=== PATIENT | female | born 1960 | race Caucasian/White ===

== ENCOUNTER → 2017-01-19 | Outpatient (CLI) | payer BC ==
--- NOTE | 2017-01-20 07:38 | WWHP ---
DATE OF SERVICE: 01/19/2017 CHIEF COMPLAINT: The patient is here for her routine gynecologic exam and mammogram. HPI: This is a 56-year-old G3, P3 with an LMP of 2009. The patient is status post endometrial ablation in 2009 and has been amenorrheic since then. She did go through a period of hot flashes, which have improved. She is without gynecologic complaints. PAST MEDICAL HISTORY: Basal cell skin cancer 2016. MEDICATIONS: None. Allergies to CT SCAN DYE, which caused difficulty breathing. PAST SURGICAL HISTORY: section x3, tonsillectomy in the past, colonoscopy 2014. Removal of basal cell skin cancer 2016. 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 SOCIAL HISTORY: She denies tobacco and drug use and has 0 to 3 alcoholic drinks per month. 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 She would like to retire in 2018. Family history is unchanged from the 2015 H&P. REVIEW OF SYSTEMS: Weight has been stable. She denies respiratory, cardiac, or GI problems. PHYSICAL EXAM: Blood pressure 116/80. Height 5 feet 4-1/2 inches. Weight 212 pounds. Temperature 97.9, pulse 79. This a well-developed, heavyset white female who is alert and oriented x3 in no acute distress. HEENT is within normal limits. NECK: Supple without mass or thyromegaly. CHEST AND LUNGS: Clear to auscultation. HEART: Regular rate and rhythm. Breasts are without mass or discharge. Axillary exam is negative for adenopathy. BACK: Negative for CVA tenderness. ABDOMEN: Mildly obese, soft, nontender, without palpable masses. PELVIC EXAM: Normal external genitalia with minimal atrophy. Cervix and vagina appear within normal limits with mild atrophy. There is no evidence of prolapse. The uterus is midposition, nongravid size and nontender and there are no palpable adnexal masses or tenderness. Rectovaginal exam is negative mass or tenderness and is negative for occult blood. EXTREMITIES: Nontender. IMPRESSION: A 56-year-old menopausal female with normal gynecologic exam. PLAN: 1. Pap smear was performed. 2. Self breast examination was discussed. 3. Mammogram will be done today. 4. She will return in one year. FRANK
--- NOTE | 2017-01-20 07:56 | MM ---
Reason for exam: screening (asymptomatic). Last mammogram was performed 2 years ago. History: Patient is postmenopausal. Took hormonal contraceptives for 1 year. Physical Findings: A clinical breast exam by your physician is recommended on an annual basis and results should be correlated with mammographic findings. MG Screening Mammo w CAD Bilateral CC and MLO view(s) were taken. Prior study comparison: January 25, 2015, right breast MG work up mamm w CAD RT. January 08, 2015, bilateral MG screening mammo w CAD. The breast tissue is heterogeneously dense. This may lower the sensitivity of mammography. There is no discrete abnormality. ASSESSMENT: Negative, BI-RAD 1 RECOMMENDATION: Routine screening mammogram of both breasts in 1 year.
== END | disposition home or self-care (01) ==
LOC: WWCWWP 15:58
PROVIDERS: ATTEND Obstetrics & Gynecology
DX: Z12.31 Encounter for screening mammogram for malignant neoplasm of breast (principal)

== ENCOUNTER → 2018-02-18 | Outpatient (CLI) | payer BC ==
[2018-02-18 20:41] LABS: ALT 29 U/L (9-52); AST 20 U/L (14-36); Albumin 4.3 g/dL (3.5-5.0); Alkaline Phosphatase 74 U/L (38-126); Anion Gap 13 mmol/L; Blood Urea Nitrogen 14 mg/dL (7-17); Calcium 9.5 mg/dL (8.4-10.2); Carbon Dioxide 24 mmol/L (22-30); Chloride 107 mmol/L (98-107); Cholesterol 203 mg/dL (<200); Glucose 103 mg/dL (74-99); HDL Cholesterol 39 mg/dL (40-60); LDL Cholesterol,Calculated 136 mg/dL (0-99); Potassium 4.5 mmol/L (3.5-5.1); Sodium 144 mmol/L (137-145); Total Bilirubin 0.5 mg/dL (0.2-1.3); Total Protein 7.3 g/dL (6.3-8.2); Triglycerides 139 mg/dL (<150)
== END | disposition home or self-care (01) ==
LOC: MMGSC 11:24
PROVIDERS: ATTEND Family Medicine
DX: E78.5 Hyperlipidemia, unspecified (principal)
CPT/HCPCS: 36415; 80053; 80061

== ENCOUNTER 2018-04-05 17:49 | Emergency (ER) | payer BC ==
[2018-04-05] MEDS ORDERED: KETOROLAC 30 MG/ML 1 ML VIAL IVP STA (18:29)
--- NOTE | 2018-04-05 18:37 | ED ---
Back Pain HPI - General Chief Complaint: Back Pain/Injury Stated Complaint: SOB/Back Pain Time Seen by Provider: 04/05/18 18:10 Source: patient Limitations: no limitations - History of Present Illness Initial Comments: Patient is a 57-year-old female presents with a chief complaint of back pain. The patient states that this started last night. She describes an episodic sharp and grabbing pain. She cannot identify any inciting incidences. No aggravating or alleviating factors. Timing is intermittent. Patient states that she does not take any medications, she recently had a physical examination with blood work and everything was normal. Patient is otherwise healthy. - Related Data Home Medications Medication Instructions Recorded Confirmed Acetaminophen Tab [Tylenol Tab] 650 mg PO ONCE PRN 04/05/18 04/05/18 Naproxen Sodium [Aleve] 440 mg PO ONCE PRN 04/05/18 04/05/18 Kye-Azmc-Mprrw Acid 1 cap PO DAILY 04/05/18 04/05/18 [-U Capsule (formulary)] Probiotic Gummies 1 tab PO DAILY 04/05/18 04/05/18 Previous Rx's Medication Instructions Recorded Ibuprofen [Motrin] 800 mg PO TID #20 tab 04/05/18 Methocarbamol [Robaxin-750] 750 mg PO TID PRN #6 tablet 04/05/18 Allergies Allergy/AdvReac Type Severity Reaction Status Date / Time Iodinated Contrast- Oral and Allergy Anaphylaxis Verified 04/05/18 19:06 IV Dye Review of Systems ROS Statement: Those systems with pertinent positive or pertinent negative responses have been documented in the HPI. ROS Other: All systems not noted in ROS Statement are negative. Musculoskeletal: Reports: back pain Past Medical History Past Medical History: No Reported History History of Any Multi-Drug Resistant Organisms: None Reported Past Surgical History: Adenoidectomy, Section, Tonsillectomy Past Psychological History: No Psychological Hx Reported Smoking Status: Never smoker Past Alcohol Use History: None Reported Past Drug Use History: None Reported General Exam Limitations: no limitations General appearance: alert, in no apparent distress Head exam: Present: atraumatic, normocephalic Eye exam: Present: normal appearance ENT exam: Present: normal exam, mucous membranes moist Neck exam: Present: normal inspection, full ROM. Absent: tenderness, lymphadenopathy Respiratory exam: Present: normal lung sounds bilaterally. Absent: respiratory distress, wheezes Cardiovascular Exam: Present: regular rate, normal rhythm GI/Abdominal exam: Present: soft, tenderness (Mild epigastric tenderness.). Absent: distended Rectal exam: Present: deferred Extremities exam: Present: normal inspection, normal capillary refill. Absent: calf tenderness Back exam: Present: normal inspection. Absent: tenderness, CVA tenderness (R), CVA tenderness (L), paraspinal tenderness Neurological exam: Present: alert, oriented X3 Psychiatric exam: Present: normal affect, normal mood Skin exam: Present: warm, dry, intact Course Vital Signs 04/05/18 04/05/18 04/05/18 17:59 18:54 19:15 Temperature 97.8 F Pulse Rate 68 73 68 Respiratory 18 20 19 Rate Blood Pressure 125/73 135/76 O2 Sat by Pulse 97 99 95 Oximetry Medical Decision Making - Medical Decision Making Patient presents with a chief complaint of back pain. On initial evaluation, vital signs are stable, patient is no acute distress. EKG performed at 1807 shows normal sinus rhythm with a rate of 64 bpm. EKG is otherwise unremarkable. Patient will be evaluated with basic and cardiac labs. At this time, patient does not complain of any pleuritic nature to her back pain. Oxygen saturation is 97% on room air, vitals are otherwise normal. At this time , PE is thought to be unlikely. 8:28 PM Lab evaluation thus far is unremarkable. Initial cardiac enzymes are negative. Chest x-ray is within normal limits. Patient states that her pain is improved after a dose of Toradol. Patient now further states that holding herself up or standing upright exacerbates her pain. This finding is more consistent with musculoskeletal etiology is of back pain. Patient remains stable on reevaluation. 9:34 PM Repeat troponin is negative. At this time, patient stable for discharge. She was prescribed Motrin and Robaxin for back pain. She was instructed to follow up with primary care in 1-2 days, return to the emergency department if symptoms worsen or change. - Lab Data Result diagrams: 04/05/18 18:45 04/05/18 18:45 Lab Results 04/05/18 04/05/18 04/05/18 Range/Units 18:45 18:45 18:45 WBC 9.4 (3.8-10.6) k/uL RBC 4.48 (3.80-5.40) m/uL Hgb 12.9 (11.4-16.0) gm/dL Hct 38.8 (34.0-46.0) % MCV 86.5 (80.0-100.0) fL MCH 28.7 (25.0-35.0) pg MCHC 33.2 (31.0-37.0) g/dL RDW 13.9 (11.5-15.5) % Plt Count 296 (150-450) k/uL Neutrophils % (Manual) 52 % Lymphocytes % (Manual) 41 % Monocytes % (Manual) 6 % Eosinophils % (Manual) 1 % Neutrophils # (Manual) 4.89 (1.3-7.7) k/uL Lymphocytes # (Manual) 3.85 (1.0-4.8) k/uL Monocytes # (Manual) 0.56 (0-1.0) k/uL Eosinophils # (Manual) 0.09 (0-0.7) k/uL Nucleated RBCs 0 (0-0) /100 WBC Manual Slide Review Performed Toxic Vacuolation Present Large Platelets Present Polychromasia Present Sodium 143 (137-145) mmol/L Potassium 4.4 (3.5-5.1) mmol/L Chloride 103 (98-107) mmol/L Carbon Dioxide 25 (22-30) mmol/L Anion Gap 15 mmol/L BUN 11 (7-17) mg/dL Creatinine 0.64 (0.52-1.04) mg/dL Est GFR (CKD-EPI)AfAm >90 (>60 ml/min/1.73 sqM) Est GFR (CKD-EPI)NonAf >90 (>60 ml/min/1.73 sqM) Glucose 91 (74-99) mg/dL Calcium 9.7 (8.4-10.2) mg/dL Total Bilirubin 0.5 (0.2-1.3) mg/dL AST 21 (14-36) U/L ALT 28 (9-52) U/L Alkaline Phosphatase 75 (38-126) U/L Troponin I (0.000-0.034) ng/mL NT-Pro-B Natriuret Pep 91 pg/mL Total Protein 7.2 (6.3-8.2) g/dL Albumin 4.4 (3.5-5.0) g/dL Lipase 56 (23-300) U/L Urine Color Urine Appearance (Clear) Urine pH (5.0-8.0) Ur Specific [place] (1.001-1.035) Urine Protein (Negative) Urine Glucose (UA) (Negative) Urine Ketones (Negative) Urine Blood (Negative) Urine Nitrite (Negative) Urine Bilirubin (Negative) Urine Urobilinogen (<2.0) mg/dL Ur Leukocyte Esterase (Negative) 04/05/18 04/05/18 04/05/18 Range/Units 18:45 19:33 20:35 WBC (3.8-10.6) k/uL RBC (3.80-5.40) m/uL Hgb (11.4-16.0) gm/dL Hct (34.0-46.0) % MCV (80.0-100.0) fL MCH (25.0-35.0) pg MCHC (31.0-37.0) g/dL RDW (11.5-15.5) % Plt Count (150-450) k/uL Neutrophils % (Manual) % Lymphocytes % (Manual) % Monocytes % (Manual) % Eosinophils % (Manual) % Neutrophils # (Manual) (1.3-7.7) k/uL Lymphocytes # (Manual) (1.0-4.8) k/uL Monocytes # (Manual) (0-1.0) k/uL Eosinophils # (Manual) (0-0.7) k/uL Nucleated RBCs (0-0) /100 WBC Manual Slide Review Toxic Vacuolation Large Platelets Polychromasia Sodium (137-145) mmol/L Potassium (3.5-5.1) mmol/L Chloride (98-107) mmol/L Carbon Dioxide (22-30) mmol/L Anion Gap mmol/L BUN (7-17) mg/dL Creatinine (0.52-1.04) mg/dL Est GFR (CKD-EPI)AfAm (>60 ml/min/1.73 sqM) Est GFR (CKD-EPI)NonAf (>60 ml/min/1.73 sqM) Glucose (74-99) mg/dL Calcium (8.4-10.2) mg/dL Total Bilirubin (0.2-1.3) mg/dL AST (14-36) U/L ALT (9-52) U/L Alkaline Phosphatase (38-126) U/L Troponin I <0.012 <0.012 (0.000-0.034) ng/mL NT-Pro-B Natriuret Pep pg/mL Total Protein (6.3-8.2) g/dL Albumin (3.5-5.0) g/dL Lipase (23-300) U/L Urine Color Light Yellow Urine Appearance Clear (Clear) Urine pH 5.5 (5.0-8.0) Ur Specific [place] 1.006 (1.001-1.035) Urine Protein Negative (Negative) Urine Glucose (UA) Negative (Negative) Urine Ketones Negative (Negative) Urine Blood Negative (Negative) Urine Nitrite Negative (Negative) Urine Bilirubin Negative (Negative) Urine Urobilinogen <2.0 (<2.0) mg/dL Ur Leukocyte Esterase Negative (Negative) Disposition Clinical Impression: Mid back pain, Mechanical back pain Disposition: HOME SELF-CARE Condition: Good Instructions: Back Pain (ED) Prescriptions: Ibuprofen [Motrin] 800 mg PO TID #20 tab Methocarbamol [Robaxin-750] 750 mg PO TID PRN #6 tablet PRN Reason: muscle spasm Is patient prescribed a controlled substance at d/c from ED?: No Referrals: Angela Fitch MD [Primary Care Provider] - 1-2 days
--- NOTE | 2018-04-05 19:03 | XR ---
EXAMINATION TYPE: XR chest 2V DATE OF EXAM: 04/05/2018 COMPARISON: NONE HISTORY: Short of breath TECHNIQUE: Frontal and lateral views of the chest are obtained. FINDINGS: Heart and mediastinum are normal. Lungs are clear. Diaphragm is normal. There are chest le ads. Bony thorax is intact. There is spurring in the thoracic spine. IMPRESSION: No active cardiopulmonary disease. Normal heart.
[2018-04-05 19:10] LABS: ALT 28 U/L (9-52); AST 21 U/L (14-36); Albumin 4.4 g/dL (3.5-5.0); Alkaline Phosphatase 75 U/L (38-126); Anion Gap 15 mmol/L; Blood Urea Nitrogen 11 mg/dL (7-17); Calcium 9.7 mg/dL (8.4-10.2); Carbon Dioxide 25 mmol/L (22-30); Chloride 103 mmol/L (98-107); Glucose 91 mg/dL (74-99); Lipase 56 U/L (23-300); Potassium 4.4 mmol/L (3.5-5.1); Sodium 143 mmol/L (137-145); Total Bilirubin 0.5 mg/dL (0.2-1.3); Total Protein 7.2 g/dL (6.3-8.2)
[2018-04-05 19:16] LABS: HCT 38.8 % (34.0-46.0); HGB 12.9 gm/dL (11.4-16.0); MCH 28.7 pg (25.0-35.0); MCHC 33.2 g/dL (31.0-37.0); MCV 86.5 fL (80.0-100.0); Mean Platelet Volume 7.8; Platelet Count 296 k/uL (150-450); RBC 4.48 m/uL (3.80-5.40); RDW 13.9 % (11.5-15.5); WBC 9.4 k/uL (3.8-10.6)
[2018-04-05 19:31] LABS: Eosinophils # (M) 0.09 k/uL (0-0.7); Lymphocytes # (M) 3.85 k/uL (1.0-4.8); Monocytes # (M) 0.56 k/uL (0-1.0); Neutrophils # (M) 4.89 k/uL (1.3-7.7); Neutrophils % (M) 52 %; Nucleated Red Blood Cells 0 /100 WBC (0-0); Total Cells Counted 100
[2018-04-05 19:32] LABS: Large Platelets Present; Toxic Vacuolation Present
[2018-04-05 19:33] LABS: Polychromasia Present
[2018-04-05 19:45] LABS: Appearance,Urine Clear (Clear); Bilirubin,Urine Negative (Negative); Blood,Urine Negative (Negative); Color,Urine Light Yellow; Glucose,Urine (UA) Negative (Negative); Ketones,Urine Negative (Negative); Leukocyte Esterase,Urine Negative (Negative); Nitrite,Urine Negative (Negative); PH, Urine 5.5 (5.0-8.0); Protein,Urine Negative (Negative); Specific Gravity,Urine 1.006 (1.001-1.035); Urobilinogen,Urine <2.0 mg/dL (<2.0)
[2018-04-05 21:46] VITALS: BP 132/84; PULSE 63; RESP 16; TEMP 98.3
== END 2018-04-05 21:48 | disposition home or self-care (01) ==
LOC: EC 17:49
DX: M54.9 Dorsalgia, unspecified (principal); Z79.899 Other long term (current) drug therapy; Z91.041 Radiographic dye allergy status
CPT/HCPCS: 36415; 93005; 83880; 80053; 83690; 84484; 85025; 81003; 71046; 99284; 96374; J1885

== ENCOUNTER → 2018-06-28 | Outpatient (CLI) | payer BC ==
[2018-06-28 14:16] VITALS: BP 118/78; PULSE 71; TEMP 97.4; BMI 34.4
--- NOTE | 2018-06-28 14:47 | P.HPOB ---
History of Present Illness H&P Date: 06/28/18 Chief Complaint: The patient is here for her routine gynecologic exam and mammogram. This is a 57-year-old G3 PIII with an LMP of 2009. The patient is status post endometrial ablation in 2009 and has been a mandrake since then. She did have a period with hot flashes which have resolved. She is without gynecologic complaints and denies any postmenopausal bleeding. Review of Systems She has lost 5 pounds over the last year. She denies respiratory, cardiac, or G.I. problems. 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 She did have a previous endometrial ablation. History of Any Multi-Drug Resistant Organisms: None Reported Past Surgical History: Adenoidectomy, Section (3), Tonsillectomy Additional Past Surgical History / Comment(s): Removal of basal cell skin cancer 2015. Colonoscopy 2014. 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 - Past Family History Father Family Medical History: Diabetes Mellitus Additional Family Medical History / Comment(s): Grandfather had lymphoma. Medications and Allergies Home Medications Medication Instructions Recorded Confirmed Type Acetaminophen Tab [Tylenol Tab] 650 mg PO ONCE PRN 04/05/18 06/28/18 History Naproxen Sodium [Aleve] 440 mg PO ONCE PRN 04/05/18 06/28/18 History Probiotic Gummies 1 tab PO DAILY 04/05/18 04/05/18 History Allergies Allergy/AdvReac Type Severity Reaction Status Date / Time Iodinated Contrast- Oral and Allergy Anaphylaxis Verified 04/05/18 19:06 IV Dye Exam Vital Signs Temp Pulse BP 06/28/18 14:13 97.4 F L 71 118/78 Intake and Output 06/27/18 06/28/18 06/28/18 22:59 06:59 14:59 Other: Weight 93.894 kg Height 5'5", BMI 34.4. This is a well-developed well-nourished heavyset white female who is alert and oriented times 3 in no acute distress. HEENT: Within normal limits. NECK: Supple without mass or thyromegaly. CHEST AND LUNGS: Clear to auscultation. HEART: Regular rate and rhythm. BREASTS: Are without mass or discharge. AXILLARY EXAM: Negative for adenopathy. BACK: Negative for CVA tenderness. ABDOMEN: Soft, mildly obese, nontender, without palpable masses. PELVIC EXAM: Normal external genitalia with minimal atrophy. Cervix and vagina appear normal with minimal atrophy. There is no unusual discharge. There is no evidence of prolapse. The uterus is midposition, nongravid size and nontender. There are no palpable adnexal masses or tenderness. RECTAL EXAM: rectovaginal exam is negative for mass or tenderness and is negative for occult blood. EXTREMITIES: Nontender. IMPRESSION: 1. 57-year-old menopausal female with normal gynecologic exam. PLAN: 1. Pap smear was deferred since she had a normal one last year. 2. Self breast awareness was discussed. 3. Screening mammogram will be done today 4. Osteoporosis prevention was discussed. 5. Return in one year.
--- NOTE | 2018-06-29 12:22 | MM ---
Reason for exam: screening (asymptomatic). Last mammogram was performed 1 year and 5 months ago. History: Patient is postmenopausal. Took hormonal contraceptives for 1 year. Physical Findings: A clinical breast exam by your physician is recommended on an annual basis and results should be correlated with mammographic findings. MG Screening Mammo w CAD Bilateral CC and MLO view(s) were taken. Prior study comparison: January 19, 2017, bilateral MG screening mammo w CAD. January 25, 2015, right breast MG work up mamm w CAD RT. The breast tissue is heterogeneously dense. This may lower the sensitivity of mammography. No suspicious abnormality. No significant changes when compared with prior studies. ASSESSMENT: Negative, BI-RAD 1 RECOMMENDATION: Routine screening mammogram of both breasts in 1 year.
== END | disposition home or self-care (01) ==
LOC: WWCWWP 13:55
PROVIDERS: ATTEND Obstetrics & Gynecology
DX: Z12.31 Encounter for screening mammogram for malignant neoplasm of breast (principal)
CPT/HCPCS: 77067

== ENCOUNTER → 2018-09-08 | Outpatient (CLI) | payer OTHER ==
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
== END ==
LOC: RADXRMAIN 11:54
PROVIDERS: ATTEND Emergency Medicine
DX: S13.4XXA Sprain of ligaments of cervical spine, initial encounter (principal); S23.3XXA Sprain of ligaments of thoracic spine, initial encounter; S60.222A Contusion of left hand, initial encounter; M19.042 Primary osteoarthritis, left hand
CPT/HCPCS: 72050; 72072

== ENCOUNTER → 2019-03-17 | Outpatient (CLI) | payer BC ==
[2019-03-17 11:17] LABS: HCT 42.6 % (34.0-46.0); HGB 13.8 gm/dL (11.4-16.0); MCH 28.8 pg (25.0-35.0); MCHC 32.4 g/dL (31.0-37.0); Mean Platelet Volume 7.8; Platelet Count 341 k/uL (150-450); RBC 4.79 m/uL (3.80-5.40); RDW 14.3 % (11.5-15.5); WBC 8.6 k/uL (3.8-10.6)
[2019-03-17 16:56] LABS: Albumin 4.7 g/dL (3.80-4.90); Albumin/Globulin Ratio 2.24 (1.60-3.17); Anion Gap 8.2 mmol/L (4.00-12.00); Calcium 9.7 mg/dL (8.7-10.3); Carbon Dioxide 26.8 mmol/L (21.6-31.8); Globulin 2.1 g/dL (1.6-3.3); LDL Cholesterol,Calculated 121.2 mg/dL (0.0-131.0); Potassium 4.7 mmol/L (3.5-5.5); Total Bilirubin 0.6 mg/dL (0.3-1.2); Total Protein 6.8 g/dL (6.2-8.2); VLDL Calculation 34.8 mg/dL (5.00-40.00)
[2019-03-17 17:13] LABS: T4, Free (Free Thyroxine) 0.9 ng/dL (0.80-1.80)
== END | disposition home or self-care (01) ==
LOC: LABWHC1 09:31
PROVIDERS: ATTEND Family Medicine
DX: Z00.00 Encounter for general adult medical examination without abnormal findings (principal); R53.83 Other fatigue
CPT/HCPCS: 36415; 80053; 80061; 84439; 84443; 85027

== ENCOUNTER → 2019-04-13 | Outpatient (CLI) | payer BC ==
--- NOTE | 2019-04-14 08:03 | BD ---
EXAMINATION TYPE: Axial Bone Density DATE OF EXAM: 04/13/2019 COMPARISON: NONE CLINICAL HISTORY: Postmenopausal without hormonal replacement therapy Height: 5 FT 4 1/2 IN Weight: 203 FRAX RISK QUESTIONS: RISK FACTORS HISTORY OF: Active: MODERATE Postmenopausal woman: ABLATION AGE 42 MEDICATIONS: Additional Medications: NONE Additional History: EXAM MEASUREMENTS: Bone mineral densitometry was performed using the [employer] System. Bone mineral density as measured about the Lumbar spine is: ----- L1-L4(G/cm2): 1.444 T Score Values are as follows: ----- L2: 1.6 ----- L3: 3.0 ----- L4: 2.5 ----- L1-L4: 2.2 BASELINE Bone mineral density about the R hip (g/cm2): 1.219 Bone mineral density about the L hip (g/cm2): 1.254 T Score values are as follows: -----R Neck: 1.3 -----L Neck: 1.6 -----R Total: 2.3 -----L Total: 2.9 BASELINE IMPRESSION: Normal (Values between +1 and -1 indicate normal bone mass). Consider repeating this study in 5 year s or sooner if there is some new clinical indication. NOTE: T-SCORE=SD OF THE YOUNG ADULT MEAN.
== END | disposition home or self-care (01) ==
LOC: RADBDWWP 16:14
PROVIDERS: ATTEND Family Medicine
DX: Z78.0 Asymptomatic menopausal state (principal)
CPT/HCPCS: 77080

== ENCOUNTER → 2019-10-17 | Outpatient (CLI) | payer BC ==
[2019-10-17 14:17] VITALS: BP 127/84; PULSE 66; RESP 18; TEMP 98.6; BMI 34.6
--- NOTE | 2019-10-17 14:51 | P.HPOB ---
History of Present Illness H&P Date: 10/17/19 Chief Complaint: The patient is here for her routine gynecologic exam and ma mmogram. This is a 59-year-old with an LMP of 2009. The patient is without gynecologic complaints and denies any postmenopausal bleeding. Review of Systems The patient's weight has been stable over the last year. She denies respiratory, cardiac, or G.I. problems. Past Medical History Past Medical History: Cancer Additional Past Medical History / Comment(s): Basal cell skin cancers 2015. 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 She did have a previous endometrial ablation. History of Any Multi-Drug Resistant Organisms: None Reported Past Surgical History: Adenoidectomy, Section, Tonsillectomy Additional Past Surgical History / Comment(s): Removal of basal cell skin cancer 2015. 3. Colonoscopy 2014(next after 10yrs). 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 - Past Family History Father Family Medical History: Diabetes Mellitus Additional Family Medical History / Comment(s): Grandfather had lymphoma. Medications and Allergies Home Medications Medication Instructions Recorded Confirmed Type Acetaminophen Tab [Tylenol Tab] 650 mg PO ONCE PRN 04/05/18 10/17/19 History Naproxen Sodium [Aleve] 440 mg PO ONCE PRN 04/05/18 10/17/19 History Probiotic Gummies 1 tab PO DAILY 04/05/18 10/17/19 History Allergies Allergy/AdvReac Type Severity Reaction Status Date / Time Iodinated Contrast Media Allergy Anaphylaxis Verified 10/17/19 14:17 [Iodinated Contrast- Oral and IV Dye] Exam Vital Signs Temp Pulse Resp BP Pulse Ox 10/17/19 14:10 98.6 F 66 18 127/84 96 Intake and Output 10/16/19 10/17/19 10/17/19 22:59 06:59 14:59 Other: Weight 94.347 kg Height 5 feet 5 inches, weight 208 pounds, BMI 34.6. This is a well-developed well-nourished white female who is alert and oriented times 3 in no acute distress. HEENT: Within normal limits. NECK: Supple without mass or thyromegaly. CHEST AND LUNGS: Clear to auscultation. HEART: Regular rate and rhythm. BREASTS: Are without mass or discharge. AXILLARY EXAM: Negative for adenopathy. BACK: Negative for CVA tenderness. ABDOMEN: Soft, nontender, without palpable masses. PELVIC EXAM: Normal external genitalia with mild atrophy. Cervix and vagina appear normal with mild atrophy. The cervix appears nulliparous. There is no unusual discharge. There is no evidence of prolapse. The uterus is midposition, nongravid size and nontender. There are no palpable adnexal masses or tenderness. RECTAL EXAM: Rectovaginal exam is negative for mass or tenderness and is negative for occult blood. EXTREMITIES: Nontender. IMPRESSION: 1. 59-year-old menopausal female with normal gynecologic exam. 2. Normal bone density testing done on 04/13/2019. PLAN: 1. Pap smear was performed. 2. Self breast awareness was discussed with the patient. 3. Screening mammogram will be done today. 4. Osteoporosis prevention was discussed. I have stressed the importance of adequate calcium, vitamin D and regular exercise. Recommended amounts of calcium and vitamin D were also discussed. I have recommended that she repeat bone density testing in 6 years. 5. She was advised to return in one year for her annual well woman exam.
--- NOTE | 2019-10-18 12:10 | MM ---
Reason for exam: screening (asymptomatic). Last mammogram was performed 1 year and 4 months ago. History: Patient is postmenopausal and has history of other cancer at age 50. Took hormonal contraceptives for 1 year. Physical Findings: A clinical breast exam by your physician is recommended on an annual basis and results should be correlated with mammographic findings. MG Screening Mammo w CAD Bilateral CC and MLO view(s) were taken. Prior study comparison: June 28, 2018, bilateral MG screening mammo w CAD. January 19, 2017, bilateral MG screening mammo w CAD. Finding: There are typically benign vascular, round calcifications in the right breast. There is no discrete abnormality. ASSESSMENT: Benign, BI-RAD 2 RECOMMENDATION: Routine screening mammogram of both breasts in 1 year.
== END | disposition home or self-care (01) ==
LOC: WWCWWP 13:54
PROVIDERS: ATTEND Obstetrics & Gynecology
DX: Z12.31 Encounter for screening mammogram for malignant neoplasm of breast (principal)
CPT/HCPCS: 77067

== ENCOUNTER → 2021-03-18 | Outpatient (CLI) | payer BC ==
[2021-03-18 10:58] VITALS: BP 129/91; PULSE 81; RESP 16; TEMP 98.8
--- NOTE | 2021-03-18 11:29 | P.HPOB ---
History of Present Illness H&P Date: 03/18/21 Chief Complaint: The patient is here for her routine gynecologic exam and ma mmogram. This is a 68 year old with an LMP of 2009. The patient is without gynecologic complaints and denies any postmenopausal bleeding. Review of Systems The patient has gained 4 pounds over the last year. She denies respiratory, cardiac, or G.I. problems. Past Medical History Past Medical History: Cancer Additional Past Medical History / Comment(s): Basal cell skin cancers 2015. 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 She did have a previous endometrial ablation. History of Any Multi-Drug Resistant Organisms: None Reported Past Surgical History: Adenoidectomy, Section, Tonsillectomy, Uterine Ablation Additional Past Surgical History / Comment(s): Removal of basal cell skin cancer 2015. Endometrial ablation 2009. 3. Colonoscopy 2014(next after 10yrs). 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 - Past Family History Father Family Medical History: Diabetes Mellitus Additional Family Medical History / Comment(s): Grandfather had lymphoma. Medications and Allergies Home Medications Medication Instructions Recorded Confirmed Type Acetaminophen Tab [Tylenol Tab] 650 mg PO ONCE PRN 04/05/18 03/18/21 History Naproxen Sodium [Aleve] 440 mg PO ONCE PRN 04/05/18 03/18/21 History Probiotic Gummies 1 tab PO DAILY 04/05/18 03/18/21 History Cholecalciferol (Vitamin D3) 125 mcg PO DAILY 03/18/21 03/18/21 History [Vitamin D3 (5000 Iu)] Magnesium 200 mg PO DAILY 03/18/21 03/18/21 History Zinc Gluconate [Zinc] 50 mg PO DAILY 03/18/21 03/18/21 History Allergies Allergy/AdvReac Type Severity Reaction Status Date / Time Iodinated Contrast Media Allergy Anaphylaxis Verified 03/18/21 10:50 [Iodinated Contrast- Oral and IV Dye] Exam Vital Signs Temp Pulse Resp BP Pulse Ox 03/18/21 10:52 98.8 F 81 16 129/91 96 Intake and Output 03/17/21 03/18/21 03/18/21 22:59 06:59 14:59 Other: Weight 96.162 kg Height 5 feet 5 inches, weight 212 pounds. This is a well-developed well-nourished heavyset white female who is alert and oriented times 3 in no acute distress. HEENT: Within normal limits. NECK: Supple without mass or thyromegaly. CHEST AND LUNGS: Clear to auscultation. HEART: Regular rate and rhythm. BREASTS: Are without mass or discharge. The left nipple is somewhat flat to the surface of the skin compared to the right nipple which is not flat to the cervical os and not inverted. The patient states her left nipple has always been like this for many years. AXILLARY EXAM: Negative for adenopathy. BACK: Negative for CVA tenderness. ABDOMEN: Soft, nontender, without palpable masses. PELVIC EXAM: Normal external genitalia with minimal atrophy. Cervix and vagina appear normal with minimal atrophy. There is no unusual discharge. There is no evidence of prolapse. The uterus is midposition, nongravid size and nontender. There are no palpable adnexal masses or tenderness. RECTAL EXAM: rectovaginal exam is negative for mass or tenderness and is negative for occult blood. EXTREMITIES: Nontender. IMPRESSION: 1. 60-year-old menopausal female with normal gynecologic exam. 2. Mildly elevated diastolic blood pressure. PLAN: 1. Pap smear was deferred since she had a normal one on 10/17/2019. 2. Self breast awareness was discussed with the patient. 3. Screening mammogram will be done today. 4. I have recommended regular blood pressure checks and she states she does have a blood pressure cuff for this. She will follow up with her PCP for blood pressure elevations. 5. Osteoporosis prevention was discussed. I have stressed the importance of adequate calcium, vitamin D and regular exercise. Recommended amounts of calcium and vitamin D were also discussed. 6. She was advised to return in one year for her annual well woman exam.
--- NOTE | 2021-03-19 09:34 | MM ---
Reason for exam: screening (asymptomatic). Last mammogram was performed 1 year and 5 months ago. History: Patient is postmenopausal and has history of other cancer at age 50. Took hormonal contraceptives for 1 year. Physical Findings: A clinical breast exam by your physician is recommended on an annual basis and results should be correlated with mammographic findings. MG Screening Mammo w CAD Bilateral CC and MLO view(s) were taken. Prior study comparison: October 17, 2019, bilateral MG screening mammo w CAD. June 28, 2018, bilateral MG screening mammo w CAD. The breast tissue is heterogeneously dense. This may lower the sensitivity of mammography. There are benign appearing round vascular calcifications in the right breast. There is no discrete abnormality. ASSESSMENT: Benign, BI-RAD 2 RECOMMENDATION: Routine screening mammogram of both breasts in 1 year.
== END | disposition home or self-care (01) ==
LOC: WWCWWP 10:42
PROVIDERS: ATTEND Obstetrics & Gynecology
DX: Z12.31 Encounter for screening mammogram for malignant neoplasm of breast (principal)
CPT/HCPCS: 77067

== ENCOUNTER → 2024-02-15 | Outpatient (CLI) | payer BC ==
[2024-02-15 09:01] VITALS: BP 138/85; PULSE 74; RESP 17; TEMP 98.4
--- NOTE | 2024-02-15 09:15 | P.HPOB ---
History of Present Illness H&P Date: 02/15/24 Chief Complaint: The patient is here for her routine gynecologic exam and ma mmogram. This is a 63-year-old with an LMP of 2009. The patient is without gynecologic complaints and denies any postmenopausal bleeding. Review of Systems The patient has lost 7 pounds over the last 3 years. She has been trying to lose weight. She denies respiratory, cardiac, or G.I. problems. Past Medical History Past Medical History: Cancer Additional Past Medical History / Comment(s): Basal cell skin cancers 2016. Borderline diabetes which is diet controlled. 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 She did have a previous endometrial ablation. History of Any Multi-Drug Resistant Organisms: None Reported Past Surgical History: Adenoidectomy, Section, Tonsillectomy, Uterine Ablation Additional Past Surgical History / Comment(s): Removal of basal cell skin cancer 2015. Endometrial ablation 2009. 3. Colonoscopy 2014(next after 10yrs). 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 - Past Family History Father Family Medical History: Diabetes Mellitus Additional Family Medical History / Comment(s): Grandfather had lymphoma. Medications and Allergies Home Medications Medication Instructions Recorded Confirmed Type Acetaminophen Tab [Tylenol Tab] 650 mg PO ONCE PRN 04/05/18 02/15/24 History Naproxen Sodium [Aleve] 440 mg PO ONCE PRN 04/05/18 02/15/24 History Cholecalciferol (Vitamin D3) 125 mcg PO DAILY 03/18/21 02/15/24 History [Vitamin D3 (5000 Iu)] Magnesium 200 mg PO DAILY 03/18/21 02/15/24 History Zinc Gluconate [Zinc] 50 mg PO DAILY 03/18/21 02/15/24 History Allergies Allergy/AdvReac Type Severity Reaction Status Date / Time Iodinated Contrast Media Allergy Anaphylaxis Verified 02/15/24 08:35 [Iodinated Contrast- Oral and IV Dye] Exam Vital Signs Temp Pulse Resp BP Pulse Ox 02/15/24 08:43 98.4 F 74 17 138/85 98 Intake and Output 02/14/24 02/15/24 02/15/24 22:59 06:59 14:59 Other: Weight 92.986 kg Height 5 feet 5 inches, weight 205 pounds, BMI 34.1. This is a well-developed well-nourished white female who is alert and oriented times 3 in no acute distress. HEENT: Within normal limits. NECK: Supple without mass or thyromegaly. CHEST AND LUNGS: Clear to auscultation. HEART: Regular rate and rhythm. BREASTS: Are without mass or discharge. AXILLARY EXAM: Negative for adenopathy. BACK: Negative for CVA tenderness. ABDOMEN: Soft, nontender, without palpable masses. PELVIC EXAM: Normal external genitalia with mild atrophy. Cervix and vagina appear normal with mild atrophy. The cervix appears nulliparous. There is no unusual discharge. There is no evidence of prolapse. The uterus is midposition, nongravid size and nontender. There are no palpable adnexal masses or tenderness. RECTAL EXAM: Rectovaginal exam is negative for mass or tenderness and is negative for occult blood. EXTREMITIES: Nontender. IMPRESSION: 1. 63-year-old menopausal female with normal gynecologic exam. PLAN: 1. Pap smear cotest was performed. If this is negative we will plan on discontinuing Pap smears after age 65. 2. Self breast awareness was discussed with the patient. We have also discussed symptoms associated with inflammatory breast cancer. 3. Screening mammogram will be done today. 4. Osteoporosis prevention was discussed. I have stressed the importance of adequate calcium, vitamin D and regular exercise. Recommended amounts of c alcium and vitamin D were also discussed. She had a normal bone density test on 04/13/2019. We will plan on repeating the bone density test in 1 year. 5. Screening colonoscopy is being planned by her PCP in the near future. 6. She was advised to return in one year for her annual well woman exam.
--- NOTE | 2024-02-16 10:00 | MM ---
Reason for Exam: Screening (asymptomatic). Last mammogram was performed 2 year(s) and 11 month(s) ago. Patient History: Menarche at age 12. First Full-Term at age 23. Postmenopausal. Patient has history of breast feeding. Other cancer, age 50. Patient used Hormonal Contraceptives for 1 year. Risk Values: Mayar 5 year model risk: 1.4%. NCI Lifetime model risk: 6.0%. Prior Study Comparison: 01/19/2017 Bilateral Screening Mammogram, [facility]. 06/28/2018 Bilateral Screening Mammogram, [facility]. 10/17/2019 Bilateral Screening Mammogram, [facility]. 03/18/2021 Bilateral Screening Mammogram, [facility]. Tissue Density: The breasts are heterogeneously dense, which may obscure small masses. Findings: Analyzed By CAD. There is no suspicious group of microcalcifications or new suspicious mass in either breast. Benign calcifications. Overall Assessment: Benign, BI-RAD 2 Management: Screening Mammogram of both breasts in 1 year. . Patient should continue monthly self-breast exams. A clinical breast exam by your physician is recommended on an annual basis. This exam should not preclude additional follow-up of suspicious palpable abnormalities. Note on Mayra scores and lifetime risk: 1. A Mayra score greater than 3% is considered moderate risk. If this is the case, consider specialist referral to assess eligibility for a risk reducing agent. 2. If overall lifetime risk for the development of breast cancer is 20% or higher, the patient may qualify for future screening with alternating mammogram and breast MRI. Electronically signed and approved by: Mark Mayer M.D. Radiologis
== END ==
LOC: WWCWWP 08:31
PROVIDERS: ATTEND Obstetrics & Gynecology
DX: Z12.31 Encounter for screening mammogram for malignant neoplasm of breast (principal); Z78.0 Asymptomatic menopausal state; Z91.041 Radiographic dye allergy status
CPT/HCPCS: 77063; 77067

== ENCOUNTER 2025-01-25 07:26 | Day surgery (SDC) | payer BC ==
[2025-01-24 08:30] VITALS: BMI 33.3
[~2025-01-25 07:26] MED LIST: LIDOCAINE 1% (10MG/ML) FOR IV START INTRADERMA PRN
[2025-01-25] MEDS: IV FLUID CONTINUATION 1,000 ML IV ONE (07:45)
[2025-01-25 07:51] VITALS: TEMP 97.3
[2025-01-25] MEDS: LACTATED RINGERS 1,000 ML IV SCH (07:59)
[2025-01-25 08:00] LABS: Glucose,Whole Blood 109 mg/dL (70-110)
[2025-01-25] MEDS ORDERED: LIDOCAINE 1% INJ 10MG/ML (20 ML MDV) ONE (08:20)
[2025-01-25] MEDS ORDERED: PROPOFOL 10 MG/ML 20 ML VIAL IV ONE (08:20)
--- NOTE | 2025-01-25 08:22 | P.GSHP ---
History of Present Illness H&P Date: 01/25/25 Chief Complaint: Screening colonoscopy This a 64-year-old female presents today for screening colonoscopy. Patient denies any significant GI complaints. Past Medical History Past Medical History: Cancer, Diabetes Mellitus Additional Past Medical History / Comment(s): Basal cell skin cancers 2016. Borderline diabetes which is diet controlled. History of Any Multi-Drug Resistant Organisms: None Reported Past Surgical History: Adenoidectomy, Section, Tonsillectomy, Uterine Ablation Additional Past Surgical History / Comment(s): Removal of basal cell skin cancer 2016. Endometrial ablation 2009. 3. Colonoscopy 2014 Past Anesthesia/Blood Transfusion Reactions: No Reported Reaction Smoking Status: Never smoker - Past Family History Father Family Medical History: Diabetes Mellitus Additional Family Medical History / Comment(s): Grandfather had lymphoma. Medications and Allergies Home Medications Medication Instructions Recorded Confirmed Type Naproxen Sodium [Aleve] 440 mg PO ONCE PRN 04/05/18 01/25/25 History Cholecalciferol (Vitamin D3) 125 mcg PO DAILY 03/18/21 01/25/25 History [Vitamin D3 (5000 Iu)] Magnesium 200 mg PO DAILY 03/18/21 01/25/25 History Zinc Gluconate [Zinc] 50 mg PO DAILY 03/18/21 01/25/25 History Allergies Allergy/AdvReac Type Severity Reaction Status Date / Time Iodinated Contrast Media Allergy Anaphylaxis Verified 01/25/25 07:45 [Iodinated Contrast- Oral and IV Dye] Surgical - Exam Vital Signs Temp Pulse Resp BP Pulse Ox 97.3 F L 86 18 160/84 95 01/25/25 07:44 01/25/25 07:44 01/25/25 07:44 01/25/25 07:44 01/25/25 07:44 - General well developed, well nourished, no distress - Eyes PERRL - ENT normal pinna - Neck no masses - Respiratory normal expansion - Cardiovascular Rhythm: regular - Abdomen Abdomen: soft, non tender Assessment and Plan Assessment: Will perform screening colonoscopy
--- NOTE | 2025-01-25 08:42 | P.OP ---
Date of Procedure: 01/25/25 Preoperative Diagnosis: Screening colonoscopy Postoperative Diagnosis: Normal colonoscopy Procedure(s) Performed: Colonoscopy Anesthesia: MAC Surgeon: Epifanio Jimenez Estimated Blood Loss (ml): 5 Pathology: none sent Condition: stable Disposition: PACU Description of Procedure: The patient was placed on the endoscopy table in the lateral position. She received IV sedation. Digital rectal exam performed which revealed no abnormalities. The flexible colonoscope was then placed patient anus passed throughout the entire colon. The ileocecal valve was v not visualized due to the tortuosity of colon. This point scope withdrawn. The visualized right colon appeared normal. The transverse colon and descending colon and sigmoid colon appeared normal. Scope never back the rectum this appeared normal. Scope withdrawn the patient.
[2025-01-25 08:48] VITALS: RESP 16
[2025-01-25 09:05] VITALS: BP 135/85; PULSE 69
== END 2025-01-25 09:31 | disposition home or self-care (01) ==
LOC: ORWHC2ENDO 07:26
PROVIDERS: ATTEND Surgery
DX: Z12.11 Encounter for screening for malignant neoplasm of colon (principal); R73.03 Prediabetes; Z85.828 Personal history of other malignant neoplasm of skin; Z98.890 Other specified postprocedural states; Z79.899 Other long term (current) drug therapy; Z90.89 Acquired absence of other organs; Z91.041 Radiographic dye allergy status
CPT/HCPCS: 45378; J2003; J2704

== ENCOUNTER → 2025-04-17 | Outpatient (CLI) | payer BC ==
[2025-04-17 14:18] VITALS: BP 122/76; PULSE 72; RESP 16; TEMP 98
--- NOTE | 2025-04-17 14:44 | P.HPOB ---
History of Present Illness H&P Date: 04/17/25 Chief Complaint: The patient is here for her routine gynecologic exam and ma mmogram. This is a 64-year-old with an LMP of 2009. The patient is without gynecologic complaints. Review of Systems The patient has gained 3 pounds over the last year. She denies respiratory, cardiac, or G.I. problems. Past Medical History Past Medical History: Cancer, Diabetes Mellitus Additional Past Medical History / Comment(s): Basal cell skin cancers 2016. Borderline diabetes which is diet controlled. 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 History of Any Multi-Drug Resistant Organisms: None Reported Past Surgical History: Adenoidectomy, Section, Tonsillectomy, Uterine Ablation Additional Past Surgical History / Comment(s): Removal of basal cell skin cancer 2015. Endometrial ablation 2009. 3. 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 - Past Family History Father Family Medical History: Diabetes Mellitus Additional Family Medical History / Comment(s): Grandfather had lymphoma. Medications and Allergies Home Medications Medication Instructions Recorded Confirmed Type Naproxen Sodium [Aleve] 440 mg PO ONCE PRN 04/05/18 01/25/25 History Cholecalciferol (Vitamin D3) 125 mcg PO DAILY 03/18/21 01/25/25 History [Vitamin D3 (5000 Iu)] Magnesium 200 mg PO DAILY 03/18/21 01/25/25 History Zinc Gluconate [Zinc] 50 mg PO DAILY 03/18/21 01/25/25 History Berberine Chloride [Berberine] 500 mg PO BID 04/17/25 04/17/25 History Allergies Allergy/AdvReac Type Severity Reaction Status Date / Time Iodinated Contrast Media Allergy Anaphylaxis Verified 01/25/25 07:45 [Iodinated Contrast- Oral and IV Dye] Exam Vital Signs Temp Pulse Resp BP Pulse Ox 04/17/25 14:13 98.0 F 72 16 122/76 97 Intake and Output 04/16/25 04/17/25 04/17/25 22:59 06:59 14:59 Other: Weight 94.347 kg Height 5 feet 5 inches, weight 208 pounds, BMI 34.6. This is a well-developed well-nourished white female who is alert and oriented times 3 in no acute distress. HEENT: Within normal limits. NECK: Supple without mass or thyromegaly. CHEST AND LUNGS: Clear to auscultation. HEART: Regular rate and rhythm. BREASTS: Are without mass or discharge. AXILLARY EXAM: Negative for adenopathy. BACK: Negative for CVA tenderness. ABDOMEN: Soft, nontender, without palpable masses. PELVIC EXAM: Normal external genitalia with mild atrophy. Cervix and vagina appear normal with mild atrophy. The cervix appears nulliparous. There is no unusual discharge. There is no evidence of prolapse. The uterus is midposition, nongravid size and nontender. There are no palpable adnexal masses or tenderness. RECTAL EXAM: Rectovaginal exam is negative for mass or tenderness and is negative for occult blood. EXTREMITIES: Nontender. IMPRESSION: 1. 64-year-old menopausal female with normal gynecologic exam. PLAN: 1. Her last Pap smear cotest on 02/15/2024 was negative. Since she will soon be turning 65, this will be her last one and Pap smears will be discontinued. 2. Self breast awareness was discussed with the patient. We have also discussed symptoms associated with inflammatory breast cancer. 3. Screening mammogram will be done today. 4. Osteoporosis prevention was discussed. I have stressed the importance of adequate calcium, vitamin D and regular exercise. Recommended amounts of calcium and vitamin D were also discussed. It has been about 6 years since her last bone density test, which was normal, so this will be done today. 5. She was advised to return in one year for her annual well woman exam.
--- NOTE | 2025-04-17 15:43 | MM ---
Reason for Exam: Screening (asymptomatic). Last mammogram was performed 1 year(s) and 2 month(s) ago. Patient History: Menarche at age 12. First Full-Term at age 23. Postmenopausal. Patient has history of breast feeding. Other cancer, age 50. Patient used Hormonal Contraceptives for 1 year. Risk Values: Mayra 5 year model risk: 1.4%. NCI Lifetime model risk: 5.8%. Prior Study Comparison: 10/17/2019 Bilateral Screening Mammogram, [facility]. 03/18/2021 Bilateral Screening Mammogram, [facility]. 02/15/2024 Bilateral MG 3D screening mammo w/cad, [facility]. Tissue Density: There are scattered areas of fibroglandular density. Findings: Analyzed By CAD. Right breast: There is no suspicious group of microcalcifications or new suspicious mass. Left breast: There is no suspicious group of microcalcifications or new suspicious mass. Overall Assessment: Negative, BI-RAD 1 Management: Screening Mammogram of both breasts in [address] [facility] will attempt to contact patient to return for supplemental views and ultrasound if indicated. Patient should continue monthly self-breast exams. A clinical breast exam by your physician is recommended on an annual basis. This exam should not preclude additional follow-up of suspicious palpable abnormalities. Note on Mayra scores and lifetime risk: 1. A Mayra score greater than 3% is considered moderate risk. If this is the case, consider specialist referral to assess eligibility for a risk reducing agent. 2. If overall lifetime risk for the development of breast cancer is 20% or higher, the patient may qualify for future screening with alternating mammogram and breast MRI. [facility], , 04/17/2025 3:40 PM. Electronically signed and approved by: José Miguel De Dios DO
--- NOTE | 2025-04-19 12:09 | BD ---
EXAMINATION TYPE: Axial Bone Density DATE OF EXAM: 04/17/2025 CLINICAL HISTORY: 64 years old Female. ICD-10 CODE: M89.9 DISORDER OF BONE, UNSPEC , Additional Hist ory: Height: 5 ft 5 in Weight: 208 FRAX RISK QUESTIONS: Alcohol (3 or more units per day): no Family History (Parent hip fracture): no Glucocorticoids (More than 3mos): no (Ex: prednisone, prednisolone, methylprednisolone, dexamethasone, and hydrocortisone). History of Fracture in Adulthood: no Secondary Osteoporosis: 1. Type 1 Diabetes: type 2 2. Hyperthyroidism: no 3. Menopause before 45: no 4. Malnutrition: no 5. Chronic liver disease: no Rheumatoid Arthritis: no Current Tobacco Use: no RISK FACTORS HISTORY OF: Surgery to Spine/Hip(right/left)/Wrist (right/left): no MEDICATIONS: Thyroid Medications: none Osteoporosis Medications: none EXAM MEASUREMENTS: Bone mineral densitometry was performed using the [employer]. Bone mineral density as measured about the Lumbar spine is: ----- L1-L4(G/cm2): 1.434 T Score Values are as follows: ----- L1: 1.2 ----- L2: 1.7 ----- L3: 2.8 ----- L4: 2.5 ----- L1-L4: 2.1 Z Score Values are as follows: ----- L1: 1.8 ----- L2: 2.3 ----- L3: 3.4 ----- L4: 3.0 ----- L1-L4: 2.7 Bone mineral density has: decreased -0.7 % since study of: 2019 Bone mineral density about the R hip (g/cm2): 1.207 Bone mineral density about the L hip (g/cm2): 1.256 T Score values are as follows: -----R Neck: 1.2 -----L Neck: 1.6 -----R Total: 2.3 -----L Total: 2.8 Z Score values are as follows: -----R Neck: 2.0 -----L Neck: 2.4 -----R Total: 2.8 -----L Total: 3.2 Bone mineral density has: decreased -0.7 % since study of: 2019 FRAX%s: The graph provided illustrates a 5.1 % chance for a major osteoporotic fx and a 0.1 % chance for the hips probability for fx in 10 years time. IMPRESSION: Normal (Values between +1 and -1 indicate normal bone mass). Consider repeating this study in 5 year s or sooner if there is some new clinical indication. NOTE: T-SCORE=SD OF THE YOUNG ADULT MEAN. [facility], , 04/19/2025 12:07 PM
== END ==
LOC: WWCWWP 13:55
PROVIDERS: ATTEND Obstetrics & Gynecology
DX: Z01.419 Encounter for gynecological examination (general) (routine) without abnormal findings (principal); Z12.31 Encounter for screening mammogram for malignant neoplasm of breast; Z78.0 Asymptomatic menopausal state; Z91.041 Radiographic dye allergy status
CPT/HCPCS: 77063; 77067; 77080